=== PATIENT | male | born 1940 | race Caucasian/White ===

== ENCOUNTER 2016-06-18 05:47 | Day surgery (SDC) | payer OTHER ==
[~2016-06-18] VITALS: Ht 177.8 cm; Wt 83.8 kg
[~2016-06-18 05:47] MED LIST: ALLO100T PO; ASPI81 PO; ATOR80TA PO; CARV12.52 PO; CLOP75 PO; CYAN100015 PO; DOCU1CAP39 PO; FERR324T4 PO; HYDR-3533 PO; ISOS60 PO; LEVO100T4 PO; NITR0.4S SL; TAB-TAB PO
[2016-06-18] MEDS ORDERED: MUPIROCIN 2% OINT 1 APPLIC/GM SYR NASAL SCH ×2 (06:30→07:30)
[2016-06-18] MEDS ORDERED: INSULIN HUMAN REGULAR 1,000 UNITS/10 ML VIAL SQ PRN (06:30)
[2016-06-18] MEDS ORDERED: CHLORHEXIDINE GLUCONATE 2 % 1 PACK (2 CLOTHS) TOP SCH ×2 (06:30→07:30)
[2016-06-18] MEDS ORDERED: SODIUM CHLORID 0.9% 500 ML IV SCH (06:30)
[2016-06-18] MEDS ORDERED: METOPROLOL TARTRATE 25 MG TAB PO PRN (06:30)
[2016-06-18] MEDS ORDERED: NS 1000 ML IV SCH (06:30)
[2016-06-18] MEDS ORDERED: LACTATED RINGER'S 1000 ML IV SCH (06:30)
[2016-06-18] MEDS ORDERED: VANCOMYCIN 1000 MG/NS 250 ML IV SCH ×2 (06:30)
[2016-06-18] MEDS ORDERED: POVIDONE IODINE 5% (ANTISEPSIS KIT) 4 APPLICATIONS EACH NARE SCH ×2 (06:30→07:30)
[2016-06-18] MEDS ORDERED: SODIUM CHLOR 0.9% 1000 ML INJ 1,000 ML IV SCH (07:19)
[2016-06-18] MEDS ORDERED: ASPI1TAB69 PO (07:29)
[2016-06-18] MEDS ORDERED: NITR0.4S SL (07:29)
[2016-06-18] MEDS ORDERED: STOO100C PO (07:29)
[2016-06-18] MEDS ORDERED: HYDR-3516 PO (07:29)
[2016-06-18] MEDS ORDERED: ATOR1TAB18 PO (07:29)
[2016-06-18] MEDS ORDERED: ISOS60TA PO (07:29)
[2016-06-18] MEDS ORDERED: MULTCAP13 PO (07:29)
[2016-06-18] MEDS ORDERED: FERR1TAB6 PO (07:29)
[2016-06-18] MEDS ORDERED: VITA100T15 PO (07:29)
[2016-06-18] MEDS ORDERED: VITA400C28 PO (07:29)
[2016-06-18] MEDS ORDERED: CILO100T PO (07:29)
[2016-06-18] MEDS ORDERED: COQ-100C2 PO (07:29)
[2016-06-18] MEDS ORDERED: LEVO25TA4 PO (07:29)
[2016-06-18] MEDS ORDERED: CARV6.25 PO (07:29)
[2016-06-18] MEDS ORDERED: ALLO100T PO (07:29)
[2016-06-18] MEDS ORDERED: PLAV75TA29 PO (07:29)
[2016-06-18] MEDS ORDERED: VANCOMYCIN INJ 1,000 MG in SODIUM CHLOR 0.9% 250 ML INJ 250 ML IV SCH (07:30)
[2016-06-18 07:34] VITALS: BP 146/70; PULSE 66; RESP 18; TEMP 98.4; O2SAT 97
[2016-06-18] MEDS ORDERED: VANCOMYCIN 500 MG VIAL ONE (08:27)
[2016-06-18] MEDS ORDERED: LIDOCAINE HCL 2% 50 ML VIAL ONE (08:28)
[2016-06-18] MEDS ORDERED: MIDAZOLAM HCL 5 MG/5 ML VIAL ONE (08:28)
[2016-06-18] MEDS ORDERED: SODIUM CHLORIDE 0.9% FLUSH 5 ML FLUSH IVF PRN (09:15)
[2016-06-18] MEDS ORDERED: BACITRACIN OINT 0.9 GM PKT TOP PRN (09:15)
[2016-06-18] MEDS ORDERED: CIPR-9 PO (09:49)
[2016-06-18] MEDS ORDERED: ACETAMINOPHEN/CODEINE 300 MG/30 MG TAB PO PRN (10:00)
[2016-06-18] MEDS ORDERED: CIPROFLOXACIN 500 MG TAB PO ONE (11:00)
[2016-06-18] MEDS ORDERED: SODIUM CHLORIDE 0.9% FLUSH 5 ML FLUSH IVF SCH (21:00)
--- NOTE | 2016-06-19 09:20 | MP ---
cc: DR. JULES GAY MARK B. M.D. DATE OF SURGERY 06/18/[address] Gay at the [facility] PROCEDURE PERFORMED Pacemaker generator/battery device change out. Lead interrogation. PREOPERATIVE DIAGNOSIS SHAWN pacemaker malfunction POSTOPERATIVE DIAGNOSIS SHAWN pacemaker malfunction ANESTHESIA Intravenous Versed and Fentanyl for awake sedation with 2% Xylocaine local. COMPLICATIONS None ESTIMATED BLOOD LOSS Minimal, less than 10 mL PROCEDURE TECHNIQUE The patient was brought to the cardiac catheterization laboratory and the area of the left subclavian was prepped and draped in the usual sterile manner. Following 15 mL of 2% Xylocaine for local anesthesia, an incision was made over the existing scar. With the use of a Bovie cautery and blunt dissection, the indwelling existing pacemaker device was located and explanted from the pocket. Adhesions were lysed. The device was then disconnected and the new device connected to the existing leads and double checked for secure fastening and proper positioning. Leads were interrogated via the device. The pocket was then irrigated copiously with vancomycin irrigation solution. The device was placed in the pocket and sutured to the pectoralis fascia with 2-0 silk. The pocket was then closed with 3-0 Vicryl for deep closure and 4-0 Vicryl for subcuticular closure in a running fashion. Steri-Strips and sterile pressure dressing was placed. The patient was transferred to the post anesthesia unit in stable condition. DEVICE INFORMATION The explanted device is a Medtronic DDRO1, serial number [id number]. The new device a Medtronic A2DR01, serial number [id number]. Existing lead interrogation atrial lead model number 5076-52, serial number [id number], P-wave amplitude 2.0 mV, pacing threshold 0.75 volts, impedance 361 ohms. Ventricular lead model number 5076-58, serial number [id number]. The patient was dependent. There were no R-waves. The pacing threshold 1.5 volts, impedance 380 ohms. Device was set at DDDR mode 60-130 beats per minute. MD NJ Solares/LESLIE /9:34 AM /9:07 AM
== END 2016-06-18 11:20 | disposition home or self-care (01) ==
LOC: HDIC 05:47 → HCAT 05:47
PROVIDERS: ATTEND Internal Medicine Interventional Cardiology
DX: Z45.010 Encounter for checking and testing of cardiac pacemaker pulse generator [battery] (principal); I25.119 Atherosclerotic heart disease of native coronary artery with unspecified angina pectoris; I10 Essential (primary) hypertension; I44.7 Left bundle-branch block, unspecified; I35.0 Nonrheumatic aortic (valve) stenosis; I73.9 Peripheral vascular disease, unspecified; Z79.82 Long term (current) use of aspirin; Z79.01 Long term (current) use of anticoagulants
CPT/HCPCS: 33228; 99152; 99153; C1785; J2250; J3010; J3370